=== PATIENT | male | born 1935 | race Caucasian/White ===

== ENCOUNTER → 2017-09-24 | Outpatient (CLI) | payer MEDICARE ==
[~2017-09-24] MED LIST: ATOR20 PO; DOXA4 PO; METF500 PO
== END | disposition home or self-care (01) ==
LOC: LAB SHORT 16:35 → PLD 16:35
DX: L98.499 Non-pressure chronic ulcer of skin of other sites with unspecified severity (principal)
CPT/HCPCS: 88305; 88312